=== PATIENT | male | born 1990 | race Caucasian/White ===

== ENCOUNTER 2017-04-05 21:22 | Emergency (ER) | payer OTHER ==
[2017-04-05 22:03] VITALS: BP 134/81
== END 2017-04-06 01:20 | disposition left against medical advice (07) ==
LOC: ER 21:22
DX: Z53.21 Procedure and treatment not carried out due to patient leaving prior to being seen by health care provider (principal)

== ENCOUNTER 2017-06-08 21:34 | Emergency (ER) | payer OTHER ==
[2017-06-08 21:57] VITALS: BP 134/88
== END 2017-06-08 23:00 | disposition left against medical advice (07) ==
LOC: ER 21:34
DX: Z53.21 Procedure and treatment not carried out due to patient leaving prior to being seen by health care provider (principal)

== ENCOUNTER 2019-03-12 06:12 | Emergency (ER) | payer OTHER ==
[2019-03-12] MEDS ORDERED: ONDANSETRON 4 MG TAB.RAPDIS PO ONE (09:13)
[2019-03-12] MEDS ORDERED: KETOROLAC TROMETHAMINE 60 MG/2 ML SDV IM ONE (09:13)
[2019-03-12] MEDS ORDERED: DIPHENHYDRAMINE HCL 50 MG CAPSULE PO ONE (09:14)
[2019-03-12] MEDS ORDERED: PROCHLORPERAZINE MALEATE 10 MG TABLET PO ONE (09:14)
--- NOTE | 2019-03-12 10:30 | ER Document Report ---
Entered by SIDDHARTH OLIVAS SCRIBE 03/12/19 0909 Acting as scribe for:MARGY YOUSSEF MD ED Headache - General Chief Complaint: Headache Stated Complaint: HEADACHE Time Seen by Provider: 03/12/19 09:05 Primary Care Provider: GWEN RUIZ [Primary Care Provider] - Follow up as needed Mode of Arrival: Ambulatory Information source: Patient Notes: 28-year-old male with migraines that presents to the emergency department today with complaints of a headache. Patient states that he usually takes 800 mg ibuprofen for his migraines which normally helps his headaches but he "ran out of it". Patient describes the location of the headache as "pretty much everywhere". Patient states his headache today is consistent with his previous migraines although the headache today is "pretty bad". TRAVEL OUTSIDE OF THE [place] 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 Lives with: Family Family History: Reviewed & Not Pertinent Neurological Medical History: Reports: Hx Migraine Musculoskeletal Medical History: Reports Hx Musculoskeletal Trauma Past Surgical History: Reports: Hx Orthopedic Surgery - left femur - Immunizations Hx Diphtheria, Pertussis, Tetanus Vaccination: Yes Review of Systems - Review of Systems Constitutional: No symptoms reported EENT: No symptoms reported Cardiovascular: No symptoms reported Respiratory: No symptoms reported Gastrointestinal: No symptoms reported Genitourinary: No symptoms reported Male Genitourinary: No symptoms reported Musculoskeletal: No symptoms reported Skin: No symptoms reported Hematologic/Lymphatic: No symptoms reported Neurological/Psychological: See HPI, Headaches -: Yes All other systems reviewed and negative Physical Exam - Vital signs Vitals: Temp Pulse Resp BP Pulse Ox 98 F 91 23 H 117/71 98 03/12/19 06:24 03/12/19 06:24 03/12/19 06:24 03/12/19 06:24 03/12/19 06:24 - Notes Notes: Physical Exam: General: Alert, appears well. HEENT: Normocephalic. Atraumatic. PERRLA. Extraocular movements intact. Oropharynx clear. Neck: Supple. No posterior cervical muscle tenderness with palpation. Respiratory: No respiratory distress. Abdominal: Normal Inspection. No distension. Extremities: Moves all four extremities. Neurological: Normal cognition. AAOx4. Normal speech. Complains of a headache. Positive photophobia. Psychological: Normal affect. Normal Mood. Skin: Warm. Dry. Normal color. Course - Re-evaluation Re-evalutation: 03/12/19 10:30 Patient is sleeping. He was awakened for exam, states headache is much better. - Vital Signs Vital signs: Temp Pulse Resp BP Pulse Ox 98 F 91 23 H 117/71 98 03/12/19 06:24 03/12/19 06:24 03/12/19 06:24 03/12/19 06:24 03/12/19 06:24 Discharge - Discharge Clinical Impression: Migraine headache Qualifiers: Migraine type: unspecified Status migrainosus presence: without status migrainosus Intractability: not intractable Qualified Code(s): G43.909 - Migraine, unspecified, not intractable, without status migrainosus Condition: Stable Disposition: HOME, SELF-CARE Additional Instructions: Migraine Headache The physician feels that your symptoms are due to a migraine attack. Migraines are caused by changes in the blood vessels of the head. Arteries go into spasm, often causing warning symptoms that a headache may begin soon. As the spasm goes away, the vessels dilate and throb, causing the pounding pain of a migraine headache. Migraines often cause nausea and vomiting. The treatment of headaches varies with severity and cause of pain. Not all headaches need pain shots -- in fact, there is evidence that using narcotics for headaches may make them worse in the long run. The physician will determine the therapy that's in your best interest for this particular headache. Medications are available that may prevent migraines, or stop them as they first occur. If one medication is not helpful, try another. If migraines are frequent, be patient -- follow the doctor's recommendations. Call the physician if you are worsening, or if new symptoms arise. Rest in a cool, quiet dark room today. Follow-up with your primary care provider if not improving. RETURN TO THE EMERGENCY ROOM IF ANY NEW OR WORSENING SYMPTOMS. Referrals: [facility] [Primary [facility]] - Follow up as needed Scribe Attestation: 03/12/19 10:30 I personally performed the services described in the documentation, reviewed and edited the documentation which was dictated to the scribe in my presence, and it accurately records my words and actions. I personally performed the services described in the documentation, reviewed and edited the documentation which was dictated to the scribe in my presence, and it accurately records my words and actions.
[2019-03-12 11:12] VITALS: BP 103/87
== END 2019-03-12 11:11 | disposition home or self-care (01) ==
LOC: ER 06:12
DX: G43.909 Migraine, unspecified, not intractable, without status migrainosus (principal)
CPT/HCPCS: 99283; 96374; J1885; S0119; S0183